=== PATIENT | female | born 1950 | race American Indian/Alaskan Native ===

== ENCOUNTER 2018-01-13 20:58 | Inpatient (IN) ==
--- NOTE | 2018-01-13 21:57 | Emergency Department Note ---
GI Bleed HPI - General Chief complaint: Rectal Bleed Stated complaint: bleed Time Seen by Provider: 01/13/18 21:21 Source: family Mode of arrival: ambulatory Limitations: no limitations - History of Present Illness HPI Narrative: Started developing on blood per rectum, 3-4 small bowel movements with blood clots. Little bit of malaise today, decreased appetite reports slight degree of left lower quadrant abdominal pain. No history of this bleed before. She does take aspirin. No nausea or vomiting, no recent diarrhea, she did start taking Augmentin one week ago for presumed upper respiratory infection. Denies cough denies fever chills, slight upper respiratory symptoms, has been improving recently. MD complaint: blood streaked stool Onset (ago): hour(s) - Related Data Home Medications Medication Instructions Recorded Confirmed Aspirin [Stephanie Chewable Aspirin] 81 mg PO DAILY 03/03/16 03/03/16 Calcium Carbonate [Calcium] 1 tab PO TID 03/03/16 03/03/16 Cinnamon Bark [Cinnamon] 1,000 mg PO DAILY 03/03/16 03/03/16 Diltiazem [Cardizem Cd] 180 mg PO ONCE 03/03/16 03/03/16 Ergocalciferol (Vitamin D2) 50,000 unit PO WEEKLY 03/03/16 03/03/16 [Vitamin D2] Gabapentin [Gralise] 300 mg PO HS 03/03/16 03/03/16 Herbal Complex No.174 900 mg PO HS 03/03/16 03/03/16 [Echinacea-Goldenseal] Insulin Aspart [Novolog] 30 units SC BIDAC 03/03/16 03/03/16 Insulin Detemir [Levemir] 55 unit SQ HS 03/03/16 03/03/16 Losartan [Cozaar] 50 mg PO DAILY 03/03/16 03/03/16 Multivit-Min/FA/Lycopen/Lutein 1 tab PO DAILY 03/03/16 03/03/16 [Centrum Silver Tablet] Ranitidine HCl [Zantac] 150 mg PO DAILY 03/03/16 03/03/16 metFORMIN [Glucophage] 500 mg PO BIDCC 03/03/16 03/03/16 Allergies Allergy/AdvReac Type Severity Reaction Status Date / Time Sulfa (Sulfonamide AdvReac Intermediate Swelling Verified 01/10/17 04:24 Antibiotics) [SULFA (SULFONAMIDE ANTIBIOTICS)] Review of Systems All systems ED: reviewed and negative except as stated. Gastrointestinal: Reports: abdominal pain, diarrhea. Denies: nausea, vomiting Genitourinary: Denies: dysuria, urgency Integumentary: Denies: rash Neurological: Denies: headache, weakness, dizziness Hematological/Lymphatic: Denies: easy bruising Past Medical History - Past Medical History Source: nursing notes reviewed Medical history: Reports: DM, hypertension Surgical history ED: Reports: appendectomy, cholecystectomy, orthopedic, other Family history: Reports: diabetes, hypertension - Social History smoking status: Never smoker Alcohol use: Reports: None Drug use: Reports: none Physical Exam Limitations: no limitations General appearance: alert Head: atraumatic, normocephalic Eye: Present: normal appearance, PERRL, EOMI. Absent: conjunctival injection ENT: normal exam, normal oropharynx, mucous membranes moist, TM's normal bilaterally Neck: Present: normal inspection, full ROM, trachea midline Chest: Present: normal inspection, symmetric chest wall rise Respiratory: Present: normal lung sounds bilaterally. Absent: respiratory distress, rales/crackles Cardiovascular: Present: regular rate, normal rhythm. Absent: tachycardia Abdominal: Present: soft, tenderness, normal bowel sounds. Absent: guarding, rebound Abdominal tenderness: Present: LLQ, mild Rectal: Present: normal inspection, normal rectal tone, heme (+) stool, bloody stool Extremities: Present: normal inspection, full ROM. Absent: tenderness Back: Present: normal inspection, full ROM. Absent: CVA tenderness (R), CVA tenderness (L) Neurological: Present: alert, oriented X3, CN II-XII intact Psychiatric: Present: normal affect Skin: Present: warm, dry, intact, normal color. Absent: rash, cyanosis Course Vital Signs Temperature 98 F 01/13/18 20:59 Pulse Rate 78 01/13/18 20:59 Respiratory Rate 17 01/13/18 20:59 Blood Pressure 165/68 01/13/18 20:59 Pulse Oximetry (%) 97 01/13/18 20:59 Temperature 98 F 01/13/18 20:59 Pulse Rate 93 H 01/13/18 21:54 Respiratory Rate 17 01/13/18 20:59 Blood Pressure 147/60 01/13/18 21:54 Pulse Oximetry (%) 99 01/13/18 21:54 GI Bleed - [facility] Narrative Medical decision making narrative: Patient observed here in the ED, she was not orthostatic she was not syncopal. Normal heart rhythm, normal heart rate. Hemoglobin was 11.5. Hematocrit minimally decreased in. She was typed and screened. At this point I recommended hospitalization to observe her hemoglobin and hematocrit, IV fluids given at a slow rate. She was hemodynamically stable. Discussed hospital admission with Dr. Rios as well as Dr. Montague. - Lab Data Result diagrams: 01/13/18 21:38 01/13/18 21:38 Lab Results 01/13/18 01/13/18 Range/Units 21:38 21:38 WBC 11.6 H (4.5-11.0) K/mcL RBC 4.69 (4.00-5.20) M/mcL Hgb 11.6 L (12.0-15.0) g/dL Hct 35.9 L (36.0-48.0) % MCV 76.5 L (80.0-100.0) fL MCH 24.7 L (26.0-34.0) pg MCHC 32.2 (31.0-36.0) g/dL RDW 13.5 (11.5-14.5) % Plt Count 254 (140-440) K/mcL MPV 7.8 (7.4-10.4) fL Gran % 67.0 (38.0-78.0) % Lymph % (Auto) 25.3 (15.5-49.0) % [place] % (Auto) 4.7 (1.0-12.0) % Eos % (Auto) 2.6 (0.0-7.0) % Baso % (Auto) 0.4 (0.0-2.0) % Gran # 7.9 (1.8-8.0) K/mcL Lymph # (Auto) 2.9 (1.5-4.8) K/mcL [place] # (Auto) 0.5 (0.1-0.9) K/mcL Eos # (Auto) 0.3 (0.0-0.7) K/mcL Baso # (Auto) 0 (0.0-0.3) K/mcL Sodium 138 (133-145) mmol/L Potassium 4.5 (3.3-5.1) mmol/L Chloride 101 (96-108) mmol/L Carbon Dioxide 23 (22-30) mmol/L Anion Gap 14.0 (8-16) BUN 13 (8-23) mg/dl Creatinine 0.8 (0.6-1.1) mg/dl GFR Calculation 75 Glucose 90 (70-105) mg/dL Calcium 9.3 (8.6-10.4) mg/dl Total Bilirubin 0.3 (0.0-1.0) mg/dL AST 25 (0-37) U/l ALT 18 (0-40) U/l Alkaline Phosphatase 97 (39-117) U/L Total Protein 7.0 (5.9-8.4) gm/dL Albumin 4.2 (3.2-5.2) gm/dL Globulin 2.8 (2.2-3.7) gm/dL Albumin/Globulin Ratio 1.5 (1.0-2.3) Disposition 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
[2018-01-13] MEDS ORDERED: 0.9 % SODIUM CHLORIDE 250 ML IV SCH (22:15)
[2018-01-13 22:34] LABS: Basophils # (Auto) 0 K/mcL (0.0-0.3); Basophils % (Auto) 0.4 % (0.0-2.0); Eosinophils # (Auto) 0.3 K/mcL (0.0-0.7); Eosinophils % (Auto) 2.6 % (0.0-7.0); Lymphocytes # (Auto) 2.9 K/mcL (1.5-4.8); Lymphocytes % (Auto) 25.3 % (15.5-49.0); Mean Cell Volume 76.5 fL (80.0-100.0); Mean Corpuscular HGB Conc 32.2 g/dL (31.0-36.0); Mean Corpuscular Hemoglobin 24.7 pg (26.0-34.0); Monocytes # (Auto) 0.5 K/mcL (0.1-0.9); Monocytes % (Auto) 4.7 % (1.0-12.0); Platelet Count 254 K/mcL (140-440); RBC 4.69 M/mcL (4.00-5.20); Red Cell Distribution Width 13.5 % (11.5-14.5)
[2018-01-13 22:48] LABS: ALT/SGPT 18 U/l (0-40); Albumin 4.2 gm/dL (3.2-5.2); Albumin/Globulin Ratio 1.5 (1.0-2.3); Alkaline Phosphatase 97 U/L (39-117); Blood Urea Nitrogen 13 mg/dl (8-23)
--- NOTE | 2018-01-13 23:51 | Internal Med History&Physical ---
Medical - H&P: HPI Patient information: Note initiated : 01/13/18 at 11:46 pm Service Date, if different from initiated Date: [] Patient: Corrie Doe a 67 y/o F admitted on for bleed. Chief Complaint: [] History of present illness: Ms. Doe is a 67 year old F with history of diabetes hypertension presents to the emergency room today for evaluation of lower GI bleed. The patient has been having cough that has been going on for the last 1 week, cough is associated with some shortness of breath. She was seen by a primary care provider or an urgent care center but she was prescribed Augmentin and albuterol inhaler. The patient notes that her symptoms improved after taking Augmentin. She still has some tablets left. This morning around 9:00 the patient noticed an urge to go to the bathroom, when she wiped herself she noticed that there was blood in the tissues and some clots. The patient has gone to the bathroom every hour since with multiple blood clots. She has had to use pads and notes that approximately 10-12 pads have been needed since this morning. This afternoon the patient had some sharp abdominal pain in the left lower quadrant that radiated to the umbilicus which resolved spontaneously. The patient also was dizzy this evening. The patient eventually decided to come to the emergency room for further evaluation. On presentation to the emergency room, patient was afebrile temperature 98, heart rate 78, blood pressure 165/68. Respirations 16-20, 98% oxygen saturation on room air. Labs showed mild leukocytosis 11.6, no left shift. Hemoglobin 11.6 MCV 76.5 platelets 254. INR 1.0, chemistry shows sodium of 138 potassium 4.5 bicarbonate 23 BUN 13 creatinine 0.8 glucose 90. Given patient's recurrent GI bleed patient is being admitted to the hospital for further management. We do not have a GI specialist available cushion padder but our surgeon Dr. Montague has agreed for consult and colonoscopy as needed. All systems: reviewed and no additional remarkable complaints except as stated ( As per HPI rest negative) Medical - H&P: PMH Medical history: Hypertension diabetes diabetic neuropathy Obesity Surgical history: Gallbladder surgery Appendix surgery Foot surgeries Family history: reviewed and not pertinent Pertinent family history: Maternal uncle with history of colon cancer Mother with history of ovarian cancer Social history: Lives with family, sons No smoking history No alcohol use reported No marijuana or recreational substance use reported Medical - H&P: Meds Home Medications Medication Instructions Recorded Confirmed Type Aspirin [Stephanie Chewable Aspirin] 81 mg PO DAILY 03/03/16 01/13/18 History Calcium Carbonate [Calcium] 1 tab PO TID 03/03/16 01/13/18 History Cinnamon Bark [Cinnamon] 1,000 mg PO DAILY 03/03/16 01/13/18 History Diltiazem [Cardizem Cd] 180 mg PO ONCE 03/03/16 01/13/18 History Ergocalciferol (Vitamin D2) 50,000 unit PO WEEKLY 03/03/16 01/13/18 History [Vitamin D2] Gabapentin [Gralise] 400 mg PO HS 03/03/16 03/03/16 History Herbal Complex No.174 900 mg PO HS 03/03/16 01/13/18 History [Echinacea-Goldenseal] Insulin Aspart [Novolog] 30 units SC BIDAC PRN 03/03/16 03/03/16 History Insulin Detemir [Levemir] 55 unit SQ HS 03/03/16 01/13/18 History Losartan [Cozaar] 50 mg PO DAILY 03/03/16 01/13/18 History Multivit-Min/FA/Lycopen/Lutein 1 tab PO DAILY 03/03/16 01/13/18 History [Centrum Silver Tablet] Ranitidine HCl [Zantac] 150 mg PO BID 03/03/16 01/13/18 History metFORMIN [Glucophage] 500 mg PO BIDCC 03/03/16 01/13/18 History Amoxicillin/Potassium Clav 875 mg PO BID 01/13/18 01/13/18 History [Augmentin] Allergies Allergy/AdvReac Type Severity Reaction Status Date / Time Sulfa (Sulfonamide AdvReac Intermediate Swelling Verified 03/03/16 04:24 Antibiotics) [SULFA (SULFONAMIDE ANTIBIOTICS)] Medical - H&P: Exam - Constitutional Vitals: Temp Pulse Resp BP Pulse Ox 98 F 88 18 121/86 98 01/13/18 20:59 01/13/18 23:11 01/13/18 23:11 01/13/18 23:11 01/13/18 23:11 Exam: GENERAL: The patient is a well-developed, well-nourished in no apparent distress. Is alert and oriented x3. VITAL SIGNS: Reviewed and as noted elsewhere. HEENT: Head is normocephalic and atraumatic. Extraocular muscles are intact. Pupils are equal, round, and reactive to light. Nares appeared normal. Mouth appears any without lesions. Mucous membranes are moist. NECK: Normal to inspection, Supple, No lymphadenopathy or thyromegaly. LUNGS: Air entry equal on both sides, no wheezing, crackles or rhonchi noted. No accessory muscles of respiration HEART: Regular rate and rhythm normal, S1 and S2 heard, no Gallop, S3 or Rub Noted, No Gross murmur heard. ABDOMEN: Soft, nontender, and nondistended. Positive bowel sounds. No hepatosplenomegaly was noted. EXTREMITIES: No cyanosis, clubbing, rash, lesions or edema. NEUROLOGIC: Cranial nerves II through XII are grossly intact. Motor and Sensory System Grossly Intact PSYCHIATRIC: Normal affect, Normal Mood. Appropriate Behavior. SKIN: No ulceration or wounds noted, No jaundice, No rash noted. Medical - H&P: Reslt - Labs CBC & Chem 7: 01/13/18 21:38 01/13/18 21:38 Labs: Short CBC 01/13/18 Range/Units 21:38 WBC 11.6 H (4.5-11.0) K/mcL Hgb 11.6 L (12.0-15.0) g/dL Hct 35.9 L (36.0-48.0) % Plt Count 254 (140-440) K/mcL BMP 01/13/18 21:38 Sodium 138 Potassium 4.5 Chloride 101 Carbon Dioxide 23 BUN 13 Creatinine 0.8 Glucose 90 Calcium 9.3 Liver Function 01/13/18 Range/Units 21:38 Total Bilirubin 0.3 (0.0-1.0) mg/dL AST 25 (0-37) U/l ALT 18 (0-40) U/l Alkaline Phosphatase 97 (39-117) U/L Albumin 4.2 (3.2-5.2) gm/dL Medical - H&P: A/P - Narrative A/P Narrative: A/P Lower GI bleed -Likely diverticular bleed -Last colonoscopy last year, by Dr Willoughby, no polyps as per pt, but had same in the past, -Try to obtain report in AM -Dr Montague consulted from ER -monitor on tele -Hold ASA Acute blood loss Anemia -Hb 11.6, baseline around 14 -low MCV -transfuse if needed DM -SSi insulin for glucose control. HTN -BP high, -Hold bp meds for now, monitor, Neuropathy -Resume home meds DVT -SCD Diet -NPO except Icechips and meds Code Status -Full code
[2018-01-14] MEDS ORDERED: ONDANSETRON 4 MG/2 ML VIAL IV PRN (00:17)
[2018-01-14] MEDS ORDERED: ACETAMINOPHEN 325 MG TABLET PO PRN (00:17)
[2018-01-14] MEDS ORDERED: NALOXONE HCL 0.4 MG/ML VIAL IV PRN (00:17)
[2018-01-14] MEDS ORDERED: DEXTROSE 50% 50 ML VIAL IV PRN (00:17)
[2018-01-14] MEDS ORDERED: GABAPENTIN 100 MG CAPSULE PO ONE (00:27)
[2018-01-14] MEDS ORDERED: GABAPENTIN 300 MG CAPSULE ONE (00:27)
[2018-01-14] MEDS: 0.9 % SODIUM CHLORIDE 1,000 ML IV SCH ×2 (00:30→12:21)
[2018-01-14] MEDS: INSULIN LISPRO 1 UNIT/0.01 ML UNIT SQ SCH ×4 (00:31→17:58)
[2018-01-14] MEDS: 0.9 % SODIUM CHLORIDE 10 ML SYRINGE IV SCH ×3 (05:22→22:06)
[2018-01-14 06:33] LABS: Basophils # (Auto) 0.1 K/mcL (0.0-0.3); Basophils % (Auto) 0.6 % (0.0-2.0); Eosinophils # (Auto) 0.3 K/mcL (0.0-0.7); Eosinophils % (Auto) 2.2 % (0.0-7.0); Granulocytes % (Auto) 68.2 % (38.0-78.0); Lymphocytes # (Auto) 2.7 K/mcL (1.5-4.8); Mean Cell Volume 78.2 fL (80.0-100.0); Mean Corpuscular HGB Conc 34.1 g/dL (31.0-36.0); Mean Corpuscular Hemoglobin 26.6 pg (26.0-34.0); Monocytes # (Auto) 0.6 K/mcL (0.1-0.9); Platelet Count 275 K/mcL (140-440); Red Cell Distribution Width 14.5 % (11.5-14.5)
[2018-01-14 06:47] LABS: ALT/SGPT 17 U/l (0-40); Albumin 3.8 gm/dL (3.2-5.2); Albumin/Globulin Ratio 1.5 (1.0-2.3); Alkaline Phosphatase 83 U/L (39-117); Bilirubin,Direct < 0.2 mg/dL (0.0-0.3); Blood Urea Nitrogen 9 mg/dl (8-23); Gamma Glutamyl Transpeptidase 19 U/L (5-36); Uric Acid 6.2 mg/dL (2.5-8.0)
[2018-01-14] MEDS: CALCIUM (OYSTER SHELL) 500 MG TABLET PO SCH ×3 (09:22→20:14)
--- NOTE | 2018-01-14 13:58 | Internal Med Progress Note ---
Medical - PN: Subj Patient information: Note initiated : 01/14/18 at 1:55 pm Service Date, if different from initiated Date: [] Patient: Corrie Doe a 67 y/o F admitted on 01/14/18 for bleed. Chief Complaint: [] Interval history: Ms. Doe is a 67 year old F with history of diabetes hypertension presents to the emergency room today for evaluation of lower GI bleed. The patient has been having cough that has been going on for the last 1 week, cough is associated with some shortness of breath. She was seen by a primary care provider or an urgent care center but she was prescribed Augmentin and albuterol inhaler. The patient notes that her symptoms improved after taking Augmentin. She still has some tablets left. This morning around 9:00 the patient noticed an urge to go to the bathroom, when she wiped herself she noticed that there was blood in the tissues and some clots. The patient has gone to the bathroom every hour since with multiple blood clots. She has had to use pads and notes that approximately 10-12 pads have been needed since this morning. This afternoon the patient had some sharp abdominal pain in the left lower quadrant that radiated to the umbilicus which resolved spontaneously. The patient also was dizzy this evening. The patient eventually decided to come to the emergency room for further evaluation. On presentation to the emergency room, patient was afebrile temperature 98, heart rate 78, blood pressure 165/68. Respirations 16-20, 98% oxygen saturation on room air. Labs showed mild leukocytosis 11.6, no left shift. Hemoglobin 11.6 MCV 76.5 platelets 254. INR 1.0, chemistry shows sodium of 138 potassium 4.5 bicarbonate 23 BUN 13 creatinine 0.8 glucose 90. Given patient's recurrent GI bleed patient is being admitted to the hospital for further management. 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 Montague has agreed for consult and colonoscopy as needed. 01/14 Pt seen examined, the patient does not have any new complaints or concerns till has blood with clots passing via rectum hb is stable Awaiting surgery eval repeat hb/hct this pm, Pertinent ROS: Denies headache, dizziness Denies chest pain, palpitations Denies cough or shortness of breath Denies abdominal pain, nausea or vomiting. - Constitutional Vitals: Vital Signs Temp Pulse Resp BP Pulse Ox 98.1 F 91 H 16 136/73 93 01/14/18 12:27 01/14/18 08:08 01/14/18 11:30 01/14/18 11:30 01/14/18 11:30 Period Temp Pulse Resp BP Sys/Krishna Pulse Ox Last 24 Hr 97.3 F-99.2 F 61-93 16-20 106-167/45-86 91-99 Intake and Output 01/13/18 01/14/18 01/14/18 21:59 05:59 13:59 Intake Total 20 / 20 1000 / 1000 Output Total 500 / 500 575 / 575 Balance -480 / -480 425 / 425 Weight 190 lb 186 lb 3 oz Intake & Output: Intake & Output 01/13/18 01/14/18 01/14/18 21:59 05:59 13:59 Intake Total 20 / 20 1000 / 1000 Output Total 500 / 500 575 / 575 Balance -480 / -480 425 / 425 Weight 190 lb 186 lb 3 oz Intake: IV 1000 / 1000 Sodium Chloride 0.9% 1,000 ml @ 1000 / 1000 100 mls/hr IV .Q10H [facility] Rx#: [id number] Oral Output: Void Amount 500 / 500 Urine/Stool Mix 575 / 575 Other: Urine Appearance Clear Urine Color Bright Yellow Urine Odor Normal Stool Size Small Stool Color Bright Red Blood Bright Red Blood Stool Consistency Normal for Patient Liquid # Voids 1 # Bowel Movements 1 1 # Emeses 0 Exam: Constitutional; Afebrile, cooperative, alert, not in distress. Respiratory system: Air Entry equal on both sides, No crackles or wheezing, no rhonchi. CVS- Rate rhythm regular, S1,S2 heard, no gallop, no rub. 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 Medical - PN: Obj Da - Labs CBC & Chem 7: 01/14/18 04:27 01/14/18 04:27 Labs: Abnormal Lab Results 01/14/18 01/14/18 01/13/18 04:27 04:27 21:38 WBC 11.4 H 11.6 H Hgb 11.4 L 11.6 L Hct 33.6 L 35.9 L MCV 78.2 L 76.5 L MCH 24.7 L Glucose 116 H Triglycerides 193 H Meds: Medications Acetaminophen (Tylenol) 650 mg PO Q6HP PRN PRN Reason: PAIN/FEVER > 101 Calcium Carbonate/Glycine (Oscal) 500 mg PO TID [facility] Last Admin: 01/14/18 09:22 Dose: Not Given Dextrose (Dextrose 50%) 0 ml IV UD PRN PRN Reason: Hypoglycemia Diagnostic Test (Pha) (Accu-Chek) 1 each FS Q6 [facility] Last Admin: 01/14/18 12:22 Dose: 1 each Gabapentin (Neurontin) 400 mg PO HS JC Sodium Chloride (Sodium Chloride 0.9%) 1,000 mls @ 100 mls/hr IV .Q10H [facility] Stop: 01/14/18 20:16 Last Admin: 01/14/18 12:21 Dose: 100 mls/hr Insulin Human Lispro (Humalog) 0 unit SQ Q6 [facility]; Protocol Last Admin: 01/14/18 12:22 Dose: Not Given Morphine Sulfate (Morphine) 2 mg IV Q4HP PRN PRN Reason: pain not responding to apap Naloxone HCl (Narcan) 0.1 mg IV Q2MIN PRN PRN Reason: Opiate Reversal Ondansetron HCl (Zofran) 4 mg IV Q4HP PRN PRN Reason: Nausea And Vomiting Pneumococcal Polyvalent Vaccine (Pneumovax 23) 0.5 ml IM .ONCE ONE Stop: 01/15/18 10:01 Sodium Chloride (Saline Flush) 10 ml IV Q8 [facility] Last Admin: 01/14/18 13:52 Dose: Not Given Medical - PN: A/P - Time Spent With Patient Total time spent is greater than 50% in coordination of care (as documented) at patient's floor/unit and/or counseling patient: - Narrative A/P Narrative: A/P Lower GI bleed -Likely diverticular bleed -Last colonoscopy last year, by Dr Willoughby, no polyps as per pt, but had same in the past, -Try to obtain report -Dr Montague consulted from ER -monitor on tele -Hold ASA Acute blood loss Anemia -Hb 11.6, baseline around 14, Hb is stable, monitor for now -low MCV -transfuse if needed DM -SSi insulin for glucose control. HTN -BP high, -Hold bp meds for now, monitor, Neuropathy -Resume home meds DVT -SCD Diet -NPO except Icechips and meds Code Status -Full code Medical - PN: Qual - Stroke Symptom Onset Unknown: No - VTE Deep Vein Thrombosis/Pulmonary Embolism Present on Admission: No
[2018-01-14] MEDS ORDERED: ENALAPRILAT 1.25 MG/ML VIAL IV PRN (14:17)
--- NOTE | 2018-01-14 14:18 | Internal Med Progress Note ---
Medical - PN: Subj Patient information: Note initiated : 01/14/18 at 2:13 pm Service Date, if different from initiated Date: [] Patient: Corrie Doe a 67 y/o F admitted on 01/14/18 for bleed. Chief Complaint: [] Interval history: Ms. Doe is a 67 year old F with history of diabetes hypertension presents to the emergency room today for evaluation of lower GI bleed. The patient has been having cough that has been going on for the last 1 week, cough is associated with some shortness of breath. She was seen by a primary care provider or an urgent care center but she was prescribed Augmentin and albuterol inhaler. The patient notes that her symptoms improved after taking Augmentin. She still has some tablets left. This morning around 9:00 the patient noticed an urge to go to the bathroom, when she wiped herself she noticed that there was blood in the tissues and some clots. The patient has gone to the bathroom every hour since with multiple blood clots. She has had to use pads and notes that approximately 10-12 pads have been needed since this morning. This afternoon the patient had some sharp abdominal pain in the left lower quadrant that radiated to the umbilicus which resolved spontaneously. The patient also was dizzy this evening. The patient eventually decided to come to the emergency room for further evaluation. On presentation to the emergency room, patient was afebrile temperature 98, heart rate 78, blood pressure 165/68. Respirations 16-20, 98% oxygen saturation on room air. Labs showed mild leukocytosis 11.6, no left shift. Hemoglobin 11.6 MCV 76.5 platelets 254. INR 1.0, chemistry shows sodium of 138 potassium 4.5 bicarbonate 23 BUN 13 creatinine 0.8 glucose 90. Given patient's recurrent GI bleed patient is being admitted to the hospital for further management. We do not have a GI specialist available personal secretary but our surgeon Dr. Montague has agreed for consult and colonoscopy as needed. 01/14 Pt seen examined, the patient does not have any new complaints or concerns till has blood with clots passing via rectum hb is stable Awaiting surgery eval repeat hb/hct this pm, 01/15 - Constitutional Vitals: Vital Signs Temp Pulse Resp BP Pulse Ox 98.1 F 91 H 16 136/73 93 01/14/18 12:27 01/14/18 08:08 01/14/18 11:30 01/14/18 11:30 01/14/18 11:30 Period Temp Pulse Resp BP Sys/Krishna Pulse Ox Last 24 Hr 97.3 F-99.2 F 61-93 16-20 106-167/45-86 91-99 Intake and Output 01/14/18 01/14/18 01/14/18 05:59 13:59 21:59 Intake Total 20 1000 / 1000 Output Total 500 / 500 575 / 575 150 / 150 Balance -480 / -480 425 / 425 -150 / -150 Weight 84.453 kg Intake & Output: Intake & Output 01/14/18 01/14/18 01/14/18 05:59 13:59 21:59 Intake Total 20 / 20 1000 / 1000 Output Total 500 / 500 575 / 575 150 / 150 Balance -480 / -480 425 / 425 -150 / -150 Weight 84.453 kg Intake: IV 1000 / 1000 Sodium Chloride 0.9% 1,000 ml @ 1000 / 1000 100 mls/hr IV .Q10H [facility] Rx#: [id number] Oral Output: Urine Catheter Amount 150 / 150 Void Amount 500 / 500 Urine/Stool Mix 575 / 575 Other: Urine Appearance Clear Urine Color Bright Yellow Pale Urine Odor Normal Stool Size Small Small Stool Color Bright Red Blood Bright Red Blood Bright Red Blood Dark Red Blood Stool Consistency Normal for Patient Liquid Liquid Loose # Voids 1 # Bowel Movements 1 1 # Emeses 0 Exam: General: Alert, Awake, No acute Distress HEENT: EOMI, neck supple CV: RRR, No murmurs, Pulm: Clear b/l, no wheezing/rhonchi/rales Abd: soft, nontender, +BS x4 Ext: no clubbing/cyanosis/edema Neuro: Alert, no focal deficits, moves all extremities Skin: warm/dry Medical - PN: Obj Da - Labs CBC & Chem 7: 01/14/18 04:27 01/14/18 04:27 Labs: Abnormal Lab Results 01/14/18 01/14/18 01/13/18 04:27 04:27 21:38 WBC 11.4 H 11.6 H Hgb 11.4 L 11.6 L Hct 33.6 L 35.9 L MCV 78.2 L 76.5 L MCH 24.7 L Glucose 116 H Triglycerides 193 H Meds: Medications Acetaminophen (Tylenol) 650 mg PO Q6HP PRN PRN Reason: PAIN/FEVER > 101 Calcium Carbonate/Glycine (Oscal) 500 mg PO TID [facility] Last Admin: 01/14/18 09:22 Dose: Not Given Dextrose (Dextrose 50%) 0 ml IV UD PRN PRN Reason: Hypoglycemia Diagnostic Test (Pha) (Accu-Chek) 1 each FS Q6 [facility] Last Admin: 01/14/18 12:22 Dose: 1 each Gabapentin (Neurontin) 400 mg PO HS JC Sodium Chloride (Sodium Chloride 0.9%) 1,000 mls @ 100 mls/hr IV .Q10H [facility] Stop: 01/14/18 20:16 Last Admin: 01/14/18 12:21 Dose: 100 mls/hr Insulin Human Lispro (Humalog) 0 unit SQ Q6 [facility]; Protocol Last Admin: 01/14/18 12:22 Dose: Not Given Morphine Sulfate (Morphine) 2 mg IV Q4HP PRN PRN Reason: pain not responding to apap Naloxone HCl (Narcan) 0.1 mg IV Q2MIN PRN PRN Reason: Opiate Reversal Ondansetron HCl (Zofran) 4 mg IV Q4HP PRN PRN Reason: Nausea And Vomiting Pneumococcal Polyvalent Vaccine (Pneumovax 23) 0.5 ml IM .ONCE ONE Stop: 01/15/18 10:01 Sodium Chloride (Saline Flush) 10 ml IV Q8 [facility] Last Admin: 01/14/18 13:52 Dose: Not Given Medical - PN: A/P - Time Spent With Patient Total time spent is greater than 50% in coordination of care (as documented) at patient's floor/unit and/or counseling patient: - Narrative A/P Narrative: A: *Lower GI bleed: Likely diverticular bleed -Last colonoscopy last year, by Dr Willoughby, no polyps as per pt, but had same in the past, *Acute blood loss Anemia, on chronic: 2/2 above *DM: *HTN: *Neuropathy: * P: -Dr Montague consulted from ER, pending colonoscopy -monitor on tele -Hold ASA -monitor H&H, prn transfuse -BP meds held while NPO, IV prn -SSI - -ppx: SCD Medical - PN: Qual - Stroke Symptom Onset Unknown: No - VTE Deep Vein Thrombosis/Pulmonary Embolism Present on Admission: No
--- NOTE | 2018-01-14 15:34 | General Surgery Consult Note ---
History of Present Illness Patient information: Note initiated : 01/14/18 at 3:32 pm Service Date, if different from initiated Date: [] Patient: Corrie Doe 67 y/o F admitted on 01/14/18 for bleed. Chief Complaint: [] Reason for consult: other (rrectal bleeding) History of present illness: 67-year-old female admitted for evaluation and treatment of rectal bleeding. The patient states that on the morning of to December she developed crampy abdominal pain followed by multiple bloody stools.. She states that she had bloody bowel movements hourly for the next 45 hours.. She finally was seen in the emergency room at 8 PM on the day of admission. She had blood per rectum with a hemoglobin of 11.6. Prior hemoglobin was 14. The patient states that she had colonoscopy by Dr. Shukla last year which was normal. She had prior colonoscopy 5 years prior and that had multiple polyps. Today she has had 4 bowel movements with some clots. She is still having mild left-sided abdominal pain. Patient is evaluated and is counseled for colonoscopy after undergoing bowel prep. Review of Systems - Constitutional fatigue, malaise, no weight loss - EENT Nose, mouth and throat: no abnormal hearing, no hoarseness, no neck pain, no sore throat, no throat swelling - Breasts no change in shape, no pain, no nipple discharge, no skin changes - Cardiovascular no chest pain, no claudication, no dyspnea on exertion, no orthopnea, no palpatations, no rapid heart rate, no syncope - Respiratory no cough, no dyspnea on exertion, no wheezing, no excessive phlegm production, no pain with cough - Gastrointestinal abdominal pain, change in stool character, cramping, hematochezia, nausea, no vomiting - Genitourinary Genitourinary: no difficulty voiding, no dysuria, no nocturia - Musculoskeletal arthralgias, numbness, stiffness - Integumentary no changing lesions, no non-healing lesions, no pruritus, no rash - Neurological no abnormal hearing, no abnormal speech, no confusion, no convulsions, no dizziness, no numbness, no restless legs, no syncope, no vertigo - Psychiatric no panic attacks - Endocrine polydipsia, no fatigue, no palpitations - Hematologic/Lymphatic no easy bleeding, no easy bruising, no lymphadenopathy - Allergic/Immunologic no tongue swelling, no throat swelling, no uticaria, no wheezing, no lip swelling Past History Past medical history: Diabetes mellitus Hypertension History of C. difficile colitis treated 10 days Past surgical history: Cholecystectomy Appendectomy Open reduction and fixation right ankle fracture Right foot surgery Past family history: Mother age 76 due to ovarian cancer Father age 40 due to gunshot wound 1 sibling with coronary artery disease 3 siblings with diabetes mellitus Past social history: Never smoker No alcohol use No drug use Medications and Allergies Home Medications Medication Instructions Recorded Confirmed Type Aspirin [Stephanie Chewable Aspirin] 81 mg PO DAILY 03/03/16 01/14/18 History Calcium Carbonate [Calcium] 1 tab PO TID 03/03/16 01/14/18 History Cinnamon Bark [Cinnamon] 1,000 mg PO DAILY 03/03/16 01/14/18 History Diltiazem [Cardizem Cd] 180 mg PO QAM 03/03/16 01/14/18 History Ergocalciferol (Vitamin D2) 50,000 unit PO WEEKLY 03/03/16 01/14/18 History [Vitamin D2] Gabapentin [Gralise] 400 mg PO HS 03/03/16 01/14/18 History Herbal Complex No.174 900 mg PO HS 03/03/16 01/14/18 History [Echinacea-Goldenseal] Insulin Aspart [Novolog] 30 units SC BIDAC PRN 03/03/16 01/14/18 History Insulin Detemir [Levemir] 55 unit SQ HS 03/03/16 01/14/18 History Losartan [Cozaar] 50 mg PO DAILY 03/03/16 01/14/18 History Multivit-Min/FA/Lycopen/Lutein 1 tab PO DAILY 03/03/16 01/14/18 History [Centrum Silver Tablet] Ranitidine HCl [Zantac] 150 mg PO BID 03/03/16 01/14/18 History metFORMIN [Glucophage] 500 mg PO BIDCC 03/03/16 01/14/18 History Amoxicillin/Potassium Clav 875 mg PO BID 01/13/18 01/14/18 History [Augmentin] Allergies Allergy/AdvReac Type Severity Reaction Status Date / Time Sulfa (Sulfonamide AdvReac Intermediate Swelling Verified 01/14/18 00:23 Antibiotics) [SULFA (SULFONAMIDE ANTIBIOTICS)] Exam Temp Pulse Resp BP Pulse Ox 98.1 F 91 H 16 136/73 93 01/14/18 12:27 01/14/18 08:08 01/14/18 11:30 01/14/18 11:30 01/14/18 11:30 - General physical appearance well developed, well nourished, no distress. negative: no pain - Eyes PERRL, normal ocular movement. negative: icteric - ENT normal pinna, normal nares, normal mucosa, no hearing loss, no congestion - Head Head exam IM: Present: atraumatic, normal inspection, normocephalic - Neck no masses, no bruits, trachea midline, no lymphadenopathy, no venous distension - Cardiovascular Cardiovascular exam IM: Present: normal rate and rhythm, RRR, +S1, +S2. Absent : JVD, tachycardia - Respiratory normal expansion, normal respiratory effort, clear to auscultation - Abdomen Abdomen: Present: soft, tender (mmild left lower quadrant tenderness with guarding; good active bowel sounds;;;;;;;;;;;;;;;;;;;;;;;;;;;;;;;;;;;;;;;;;;;;; ; no palpable mass), bowel sounds Hernia: Present: none - Genitourinary Present: normal external genitalia - Integumentary Present: no rash, no growths, no abnormal pigmentation - Neurologic Present: normal coordination, normal sensation - Musculoskeletal Present: normal gait, normal posture - Psychiatric Present: oriented to time, oriented to person, oriented to place, speech is normal, memory intact Results - Labs 01/14/18 15:00 01/14/18 04:27 Abnormal lab results 01/13/18 01/14/18 01/14/18 Range/Units 21:38 04:27 04:27 WBC 11.6 H 11.4 H (4.5-11.0) K/mcL Hgb 11.6 L 11.4 L (12.0-15.0) g/dL Hct 35.9 L 33.6 L (36.0-48.0) % MCV 76.5 L 78.2 L (80.0-100.0) fL MCH 24.7 L (26.0-34.0) pg Glucose 116 H (70-105) mg/dL Triglycerides 193 H (<150) mg/dl 01/14/18 Range/Units 15:00 WBC (4.5-11.0) K/mcL Hgb 11.1 L (12.0-15.0) g/dL Hct 32.0 L (36.0-48.0) % MCV (80.0-100.0) fL MCH (26.0-34.0) pg Glucose (70-105) mg/dL Triglycerides (<150) mg/dl Diabetes panel 01/13/18 01/14/18 Range/Units 21:38 04:27 Sodium 138 139 (133-145) mmol/L Potassium 4.5 4.1 (3.3-5.1) mmol/L Chloride 101 103 (96-108) mmol/L Carbon Dioxide 23 24 (22-30) mmol/L BUN 13 9 (8-23) mg/dl Creatinine 0.8 0.7 (0.6-1.1) mg/dl Glucose 90 116 H (70-105) mg/dL Calcium 9.3 8.9 (8.6-10.4) mg/dl AST 25 22 (0-37) U/l ALT 18 17 (0-40) U/l Alkaline Phosphatase 97 83 (39-117) U/L Total Protein 7.0 6.3 (5.9-8.4) gm/dL Albumin 4.2 3.8 (3.2-5.2) gm/dL Triglycerides 193 H (<150) mg/dl Calcium panel 01/13/18 01/14/18 Range/Units 21:38 04:27 Calcium 9.3 8.9 (8.6-10.4) mg/dl Phosphorus 3.8 (2.7-4.5) mg/dL Albumin 4.2 3.8 (3.2-5.2) gm/dL Pituitary panel 01/13/18 01/14/18 Range/Units 21:38 04:27 Sodium 138 139 (133-145) mmol/L Potassium 4.5 4.1 (3.3-5.1) mmol/L Chloride 101 103 (96-108) mmol/L Carbon Dioxide 23 24 (22-30) mmol/L BUN 13 9 (8-23) mg/dl Creatinine 0.8 0.7 (0.6-1.1) mg/dl Glucose 90 116 H (70-105) mg/dL Calcium 9.3 8.9 (8.6-10.4) mg/dl Adrenal panel 01/13/18 01/14/18 Range/Units 21:38 04:27 Sodium 138 139 (133-145) mmol/L Potassium 4.5 4.1 (3.3-5.1) mmol/L Chloride 101 103 (96-108) mmol/L Carbon Dioxide 23 24 (22-30) mmol/L BUN 13 9 (8-23) mg/dl Creatinine 0.8 0.7 (0.6-1.1) mg/dl Glucose 90 116 H (70-105) mg/dL Calcium 9.3 8.9 (8.6-10.4) mg/dl Total Bilirubin 0.3 0.4 (0.0-1.0) mg/dL AST 25 22 (0-37) U/l ALT 18 17 (0-40) U/l Alkaline Phosphatase 97 83 (39-117) U/L Total Protein 7.0 6.3 (5.9-8.4) gm/dL Albumin 4.2 3.8 (3.2-5.2) gm/dL All other labs normal. Assessment and Plan (1) Lower gastrointestinal bleeding Patient will have bowel prep tonight and is scheduled for colonoscopy in the morning Status: Acute (2) Anemia due to blood loss, acute Hemoglobin and hematocrit will be checked every 4 hours Status: Acute (3) Hypertension Status: Acute (4) Diabetes mellitus Status: Acute Qualifiers: Diabetes mellitus type: type 2 Diabetes mellitus manager intermediate insulin use: with manager intermediate use Diabetes mellitus complication status: without complication Qualified Code(s): E11.9 - Type 2 diabetes mellitus without complications; Z79.4 - manager intermediate (current) use of insulin
[2018-01-14] MEDS ORDERED: MAGNESIUM CITRATE 300 ML ORAL.SOL PO ONE (15:43)
[2018-01-14] MEDS ORDERED: GABAPENTIN 400 MG CAPSULE PO SCH (21:00)
[2018-01-15] MEDS: INSULIN LISPRO 1 UNIT/0.01 ML UNIT SQ SCH ×5 (00:14→23:33)
[2018-01-15] MEDS: 0.9 % SODIUM CHLORIDE 10 ML SYRINGE IV SCH ×3 (05:55→20:08)
[2018-01-15 06:39] LABS: Basophils # (Auto) 0.1 K/mcL (0.0-0.3); Basophils % (Auto) 0.7 % (0.0-2.0); Eosinophils # (Auto) 0.2 K/mcL (0.0-0.7); Eosinophils % (Auto) 2.6 % (0.0-7.0); Lymphocytes # (Auto) 2.3 K/mcL (1.5-4.8); Lymphocytes % (Auto) 27.9 % (15.5-49.0); Mean Cell Volume 78.6 fL (80.0-100.0); Mean Corpuscular HGB Conc 33.6 g/dL (31.0-36.0); Mean Corpuscular Hemoglobin 26.4 pg (26.0-34.0); Monocytes # (Auto) 0.6 K/mcL (0.1-0.9); Monocytes % (Auto) 6.8 % (1.0-12.0); Platelet Count 236 K/mcL (140-440); RBC 3.87 M/mcL (4.00-5.20); Red Cell Distribution Width 14.8 % (11.5-14.5)
[2018-01-15 07:05] LABS: ALT/SGPT 17 U/l (0-40); Albumin 3.6 gm/dL (3.2-5.2); Albumin/Globulin Ratio 1.4 (1.0-2.3); Alkaline Phosphatase 75 U/L (39-117); Bilirubin,Direct < 0.2 mg/dL (0.0-0.3); Blood Urea Nitrogen 8 mg/dl (8-23); Gamma Glutamyl Transpeptidase 18 U/L (5-36); Uric Acid 6.6 mg/dL (2.5-8.0)
--- NOTE | 2018-01-15 07:25 | Internal Med Progress Note ---
Medical - PN: Subj Patient information: Note initiated : 01/15/18 at 7:22 am Service Date, if different from initiated Date: [] Patient: Corrie Doe a 67 y/o F admitted on 01/14/18 for bleed. Chief Complaint: [] Interval history: Ms. Doe is a 67 year old F with history of diabetes hypertension presents to the emergency room today for evaluation of lower GI bleed. The patient has been having cough that has been going on for the last 1 week, cough is associated with some shortness of breath. She was seen by a primary care provider or an urgent care center but she was prescribed Augmentin and albuterol inhaler. The patient notes that her symptoms improved after taking Augmentin. She still has some tablets left. This morning around 9:00 the patient noticed an urge to go to the bathroom, when she wiped herself she noticed that there was blood in the tissues and some clots. The patient has gone to the bathroom every hour since with multiple blood clots. She has had to use pads and notes that approximately 10-12 pads have been needed since this morning. This afternoon the patient had some sharp abdominal pain in the left lower quadrant that radiated to the umbilicus which resolved spontaneously. The patient also was dizzy this evening. The patient eventually decided to come to the emergency room for further evaluation. On presentation to the emergency room, patient was afebrile temperature 98, heart rate 78, blood pressure 165/68. Respirations 16-20, 98% oxygen saturation on room air. Labs showed mild leukocytosis 11.6, no left shift. Hemoglobin 11.6 MCV 76.5 platelets 254. INR 1.0, chemistry shows sodium of 138 potassium 4.5 bicarbonate 23 BUN 13 creatinine 0.8 glucose 90. Given patient's recurrent GI bleed patient is being admitted to the hospital for further management. We do not have a GI specialist available international accounting manager but our surgeon Dr. Montague has agreed for consult and colonoscopy as needed. 01/14 Pt seen examined, the patient does not have any new complaints or concerns till has blood with clots passing via rectum hb is stable Awaiting surgery eval repeat hb/hct this pm, 01/15 colon Prep last night with poor sleep. Occasional cough from recent cold. No other complaints. Had colonoscopy this morning with diverticulosis and old blood in few of the diverticula. Review of Systems: denies headache/fever/chills/nausea/vomiting/chest or abdominal pain/dyspnea. Otherwise see above. - Constitutional Vitals: Vital Signs Temp Pulse Resp BP Pulse Ox 98.1 F 86 20 148/65 94 01/15/18 04:36 01/15/18 04:36 01/15/18 04:36 01/15/18 04:36 01/15/18 04:36 Period Temp Pulse Resp BP Sys/Krishna Pulse Ox Last 24 Hr 97.3 F-98.9 F 86-91 16-20 136-179/65-83 91-99 Intake and Output 01/14/18 01/15/18 01/15/18 21:59 05:59 13:59 Intake Total 240 / 240 1400 / 1400 Output Total 700 / 700 1200 / 1200 Balance -460 / -460 200 / 200 Weight 83.098 kg Intake & Output: Intake & Output 01/14/18 01/15/18 01/15/18 21:59 05:59 13:59 Intake Total 240 / 240 1400 / 1400 Output Total 700 / 700 1200 / 1200 Balance -460 / -460 200 / 200 Weight 83.098 kg Intake: IV 1000 / 1000 Oral 240 / 240 400 / 400 Output: Urine Catheter Amount 150 / 150 Void Amount 75 / 75 Urine/Stool Mix 1100 / 1100 Stool 475 / 475 100 / 100 Other: Urine Appearance Clear Urine Color Bright Yellow Stool Size Large Stool Color Blood Tinged Blood Tinged Stool Consistency Liquid Liquid # Bowel Movements 1 1 Exam: General: Alert, Awake, No acute Distress HEENT: EOMI, neck supple CV: RRR, No murmurs, Pulm: Clear b/l, no wheezing/rhonchi/rales Abd: soft, nontender, +BS x4 Ext: no clubbing/cyanosis/edema Neuro: Alert, no focal deficits, moves all extremities Skin: warm/dry Medical - PN: Obj Da - Labs CBC & Chem 7: 01/15/18 05:04 01/15/18 05:04 Labs: Abnormal Lab Results 01/15/18 01/15/18 01/14/18 05:04 05:04 15:00 WBC RBC 3.87 L Hgb 10.2 L 11.1 L Hct 30.4 L 32.0 L MCV 78.6 L MCH RDW 14.8 H Glucose 115 H Triglycerides 215 H 01/14/18 01/14/18 01/13/18 04:27 04:27 21:38 WBC 11.4 H 11.6 H RBC Hgb 11.4 L 11.6 L Hct 33.6 L 35.9 L MCV 78.2 L 76.5 L MCH 24.7 L RDW Glucose 116 H Triglycerides 193 H Meds: Medications Acetaminophen (Tylenol) 650 mg PO Q6HP PRN PRN Reason: PAIN/FEVER > 101 Calcium Carbonate/Glycine (Oscal) 500 mg PO TID [facility] Last Admin: 01/14/18 20:14 Dose: 500 mg Dextrose (Dextrose 50%) 0 ml IV UD PRN PRN Reason: Hypoglycemia Diagnostic Test (Pha) (Accu-Chek) 1 each FS Q6 [facility] Last Admin: 01/15/18 05:55 Dose: 1 each Enalaprilat (Vasotec) 0 mg IV Q4HP PRN PRN Reason: Hypertension Last Admin: 01/15/18 00:14 Dose: 1.25 mg Gabapentin (Neurontin) 400 mg PO HS [facility] Last Admin: 01/14/18 20:14 Dose: 400 mg Insulin Human Lispro (Humalog) 0 unit SQ Q6 [facility]; Protocol Last Admin: 01/15/18 05:55 Dose: Not Given Morphine Sulfate (Morphine) 2 mg IV Q4HP PRN PRN Reason: pain not responding to apap Naloxone HCl (Narcan) 0.1 mg IV Q2MIN PRN PRN Reason: Opiate Reversal Ondansetron HCl (Zofran) 4 mg IV Q4HP PRN PRN Reason: Nausea And Vomiting Pneumococcal Polyvalent Vaccine (Pneumovax 23) 0.5 ml IM .ONCE ONE Stop: 01/15/18 10:01 Sodium Chloride (Saline Flush) 10 ml IV Q8 [facility] Last Admin: 01/15/18 05:55 Dose: 10 ml Medical - PN: A/P - Time Spent With Patient Total time spent is greater than 50% in coordination of care (as documented) at patient's floor/unit and/or counseling patient: - Narrative A/P Narrative: A: *Lower GI bleed: 2/2 diverticulosis -Last colonoscopy last year, by Dr Willoughby, no polyps as per pt, but had same in the past -Colonoscopy today with diverticulosis and old blood in diverticula *Acute blood loss Anemia, on chronic: 2/2 above *DM w/neuropathy: *HTN: on diltiazem and losartan * P: -Dr Montague following, colonoscopy performed this AM - -Hold home ASA -monitor H&H, prn transfuse -restart diet and home meds -SSI -d/c planning for AM -ppx: SCD Medical - PN: Qual - Stroke Symptom Onset Unknown: No - VTE Deep Vein Thrombosis/Pulmonary Embolism Present on Admission: No
[2018-01-15] MEDS ORDERED: PROPOFOL 200 MG/20 ML VIAL IV ONE (07:50)
[2018-01-15] MEDS ORDERED: LIDOCAINE HCL/PF 100 MG/5 ML SYRINGE IV ONE (07:50)
--- NOTE | 2018-01-15 08:19 | Brief Operative Note ---
Date of procedure: 01/15/18 Pre-op diagnosis: rectal bleeding; blood loss anemia Post-op diagnosis: other (diverticulosis pancolonic) Procedure: colonoscopy to terminal ileum Grafts/Implants: No Anesthesia: MAC Findings: healthy colon except for diverticulosis; old blood in few diverticulae in sigmoid colon; no blood in terminal ileum to proximal sigmoid ; bleeding from diverticulosis but no active bleeding Complications: none Surgeon: Behzad Montague Specimens Removed/Pathology: none sent Condition: stable Disposition: floor
[2018-01-15] MEDS ORDERED: ONDANSETRON 4 MG/2 ML VIAL IV PRN ×2 (08:35→11:13)
[2018-01-15] MEDS ORDERED: NALOXONE HCL 0.4 MG/ML VIAL IV PRN ×2 (08:35→11:13)
[2018-01-15] MEDS ORDERED: ENALAPRILAT 1.25 MG/ML VIAL IV PRN ×2 (08:35→11:13)
[2018-01-15] MEDS ORDERED: ACETAMINOPHEN 325 MG TABLET PO PRN ×2 (08:35→11:13)
[2018-01-15] MEDS ORDERED: DEXTROSE 50% 50 ML VIAL IV PRN ×2 (08:35→11:13)
[2018-01-15] MEDS ORDERED: CALCIUM (OYSTER SHELL) 500 MG TABLET PO SCH (09:00)
[2018-01-15] MEDS ORDERED: PNEUMOCOCCAL 23-VAL P-SAC VAC 0.5 ML VIAL IM ONE (10:00)
--- NOTE | 2018-01-15 10:52 | Discharge Summary ---
Medical - DS: Prov Patient information: Note initiated : 01/15/18 at 10:50 am Service Date, if different from initiated Date: [] Patient: Corrie Doe 67 y/o F admitted on 01/14/18 for bleed. Chief Complaint: [] Date of admission: 01/14/18 00:03 Discharge date: 01/16/18 Primary care physician: Maryuri Ko Consults: 01/13/18 Consult to Physician [CONS] Stat Comment: Consulting Provider: Michele Rios Reason For Exam: Physician to Consult 01/14/18 00:17 Consult to Physician [CONS] Stat Comment: GI bleed Consulting Provider: Behzad Montague Reason For Exam: Physician to Consult Medical - DS: Meds - Discharge Medications Active and Home Medications: Home Medications Aspirin [Stephanie Chewable Aspirin] 81 mg PO DAILY 03/03/16 [History Confirmed Last Taken 01/12/18 08:00] Calcium Carbonate [Calcium] 1 tab PO TID 03/03/16 [History Confirmed 01/14/18 Last Taken 01/12/18 21:00] Cinnamon Bark [Cinnamon] 1,000 mg PO DAILY 03/03/16 [History Confirmed 01/14/18 Last Taken 01/12/18 08:00] Diltiazem [Cardizem Cd] 180 mg PO QAM 03/03/16 [History Confirmed 01/14/18 Last Taken 01/12/18 08:00] Ergocalciferol (Vitamin D2) [Vitamin D2] 50,000 unit PO WEEKLY 03/03/16 [ History Confirmed 01/14/18 Last Taken 01/09/18 08:00] Gabapentin [Gralise] 400 mg PO HS 03/03/16 [History Confirmed 01/14/18 Last Taken 01/12/18 21:00] Herbal Complex No.174 [Echinacea-Goldenseal] 900 mg PO HS 03/03/16 [History Confirmed 01/14/18 Last Taken 01/12/18 21:00] Insulin Aspart [Novolog] 30 units SC BIDAC PRN 03/03/16 [History Confirmed 01/14 Last Taken Unknown] Insulin Detemir [Levemir] 55 unit SQ HS 03/03/16 [History Confirmed 01/14/18 Last Taken 01/12/18 21:00] Losartan [Cozaar] 50 mg PO DAILY 03/03/16 [History Confirmed 01/14/18 Last Taken 01/12/18 08:00] Multivit-Min/FA/Lycopen/Lutein [Centrum Silver Tablet] 1 tab PO DAILY 03/03/16 [ History Confirmed 01/14/18 Last Taken 01/12/18 08:00] Ranitidine HCl [Zantac] 150 mg PO BID 03/03/16 [History Confirmed 01/14/18 Last Taken 01/12/18 21:00] metFORMIN [Glucophage] 500 mg PO BIDCC 03/03/16 [History Confirmed 01/14/18 Last Taken 01/12/18 17:00] Amoxicillin/Potassium Clav [Augmentin] 875 mg PO BID 01/13/18 [History Confirmed 01/14/18 Last Taken 01/12/18 21:00] Home Medications Calcium Carbonate [Calcium] 1 tab PO TID 03/03/16 [History Confirmed 01/14/18 Last Taken 01/12/18 21:00] Cinnamon Bark [Cinnamon] 1,000 mg PO DAILY 03/03/16 [History Confirmed 01/14/18 Last Taken 01/12/18 08:00] Diltiazem [Cardizem Cd] 180 mg PO QAM 03/03/16 [History Confirmed 01/14/18 Last Taken 01/12/18 08:00] Ergocalciferol (Vitamin D2) [Vitamin D2] 50,000 unit PO WEEKLY 03/03/16 [ History Confirmed 01/14/18 Last Taken 01/09/18 08:00] Gabapentin [Gralise] 400 mg PO HS 03/03/16 [History Confirmed 01/14/18 Last Taken 01/12/18 21:00] Herbal Complex No.174 [Echinacea-Goldenseal] 900 mg PO HS 03/03/16 [History Confirmed 01/14/18 Last Taken 01/12/18 21:00] Insulin Aspart [Novolog] 30 units SC BIDAC PRN 03/03/16 [History Confirmed 01/14 Last Taken Unknown] Insulin Detemir [Levemir] 55 unit SQ HS 03/03/16 [History Confirmed 01/14/18 Last Taken 01/12/18 21:00] Losartan [Cozaar] 50 mg PO DAILY 03/03/16 [History Confirmed 01/14/18 Last Taken 01/12/18 08:00] Multivit-Min/FA/Lycopen/Lutein [Centrum Silver Tablet] 1 tab PO DAILY 03/03/16 [ History Confirmed 01/14/18 Last Taken 01/12/18 08:00] Ranitidine HCl [Zantac] 150 mg PO BID 03/03/16 [History Confirmed 01/14/18 Last Taken 01/12/18 21:00] metFORMIN [Glucophage] 500 mg PO BIDCC 03/03/16 [History Confirmed 01/14/18 Last Taken 01/12/18 17:00] Medical - DS: Hosp Hospital course: Ms. Doe is a 67 year old F with history of diabetes hypertension presents to the emergency room today for evaluation of lower GI bleed. The patient has been having cough that has been going on for the last 1 week, cough is associated with some shortness of breath. She was seen by a primary care provider or an urgent care center but she was prescribed Augmentin and albuterol inhaler. The patient notes that her symptoms improved after taking Augmentin. She still has some tablets left. This morning around 9:00 the patient noticed an urge to go to the bathroom, when she wiped herself she noticed that there was blood in the tissues and some clots. The patient has gone to the bathroom every hour since with multiple blood clots. She has had to use pads and notes that approximately 10-12 pads have been needed since this morning. This afternoon the patient had some sharp abdominal pain in the left lower quadrant that radiated to the umbilicus which resolved spontaneously. The patient also was dizzy this evening. The patient eventually decided to come to the emergency room for further evaluation. On presentation to the emergency room, patient was afebrile temperature 98, heart rate 78, blood pressure 165/68. Respirations 16-20, 98% oxygen saturation on room air. Labs showed mild leukocytosis 11.6, no left shift. Hemoglobin 11.6 MCV 76.5 platelets 254. INR 1.0, chemistry shows sodium of 138 potassium 4.5 bicarbonate 23 BUN 13 creatinine 0.8 glucose 90. Given patient's recurrent GI bleed patient is being admitted to the hospital for further management. We do not have a GI specialist available telephone operator but our surgeon Dr. Montague has agreed for consult and colonoscopy as needed. 01/14 Pt seen examined, the patient does not have any new complaints or concerns till has blood with clots passing via rectum hb is stable Awaiting surgery eval repeat hb/hct this pm, 01/15 colon Prep last night with poor sleep. Occasional cough from recent cold. No other complaints. Had colonoscopy this morning with diverticulosis and old blood in few of the diverticula. 01/16 No further bleeding. Hemoglobin stable. Patient feeling well stable for discharge. Patient to stop aspirin until seen by primary care doctor. Discharge diagnosis: GI bleed from diverticulosis, acute blood loss anemia Secondary discharge diagnosis: Diabetes with neuropathy, hypertension - Time Spent with Patient Total time spent providing and/or coordinating discharge services: Greater than 30 minutes Medical - DS: Exam - Constitutional Vitals: Vital Signs Temp Pulse Resp BP BP Pulse Ox 01/15/18 09:47 151/75 01/15/18 09:17 155/69 01/15/18 09:02 149/72 01/15/18 08:46 147/74 01/15/18 08:35 147/66 01/15/18 08:33 147/66 01/15/18 08:29 143/66 01/15/18 08:28 96.9 F L 16 143/66 01/15/18 07:58 99 01/15/18 06:36 152/56 01/15/18 04:36 98.1 F 86 20 148/65 94 01/15/18 00:45 141/76 01/15/18 00:31 166/79 01/15/18 00:02 98.1 F 20 173/83 95 01/14/18 22:25 98.9 F 20 179/83 94 01/14/18 16:43 97.7 F 18 154/75 94 01/14/18 16:36 154/75 01/14/18 16:35 98.9 F 16 99 01/14/18 12:27 98.1 F 01/14/18 11:30 97.3 F 16 136/73 136/73 93 Intake and Output 01/14/18 01/15/18 01/15/18 21:59 05:59 13:59 Intake Total 240 / 240 1400 / 1400 Output Total 700 / 700 1200 / 1200 400 / 400 Balance -460 / -460 200 / 200 -400 / -400 Intake: IV 1000 / 1000 Oral 240 / 240 400 / 400 Output: Urine Catheter Amount 150 / 150 Void Amount 75 / 75 400 / 400 Urine/Stool Mix 1100 / 1100 Stool 475 / 475 100 / 100 Other: Urine Appearance Clear Uretheral (Perdomo) Clear Urine Color Bright Yellow Uretheral (Perdomo) Pale Stool Size Large Stool Color Blood Tinged Blood Tinged Stool Consistency Liquid Liquid # Voids 1 # Bowel Movements 1 1 0 Weight 83.098 kg Medical - DS: Data Labs on day of discharge: Labs from last 24 hours 01/15/18 01/15/18 01/14/18 05:04 05:04 15:00 WBC 8.1 RBC 3.87 L Hgb 10.2 L 11.1 L Hct 30.4 L 32.0 L MCV 78.6 L MCH 26.4 MCHC 33.6 RDW 14.8 H Plt Count 236 MPV 7.7 Gran % 62.0 Lymph % (Auto) 27.9 Storey % (Auto) 6.8 Eos % (Auto) 2.6 Baso % (Auto) 0.7 Gran # 5.0 Lymph # (Auto) 2.3 Storey # (Auto) 0.6 Eos # (Auto) 0.2 Baso # (Auto) 0.1 Sodium 141 Potassium 3.9 Chloride 105 Carbon Dioxide 26 Anion Gap 10.0 BUN 8 Creatinine 0.6 GFR Calculation 93 Glucose 115 H Uric Acid 6.6 Calcium 8.6 Phosphorus 3.1 Magnesium 2.2 Total Bilirubin 0.3 Direct Bilirubin < 0.2 GGT 18 AST 22 ALT 17 Alkaline Phosphatase 75 Lactate Dehydrogenase 183 Total Protein 6.1 Albumin 3.6 Globulin 2.5 Albumin/Globulin Ratio 1.4 Triglycerides 215 H Medical - DS: A/P - Patient/Caregiver Discharge Instructions Activity: increase activity as tolerated Diet: Consistent Carbohydrate - Follow up Plan Follow up with: Maryuri Ko ARNP [Primary Care Provider] - Disposition: Home, Self-Care Prognosis: Good Rehab Potential: Good Medical - DS: Qual - VTE Deep Vein Thrombosis/Pulmonary Embolism Present on Admission: No
[2018-01-15] MEDS ORDERED: INSULIN LISPRO 1 UNIT/0.01 ML UNIT SQ SCH (12:00)
[2018-01-15] MEDS ORDERED: 0.9 % SODIUM CHLORIDE 10 ML SYRINGE IV SCH (14:00)
[2018-01-15] MEDS: CALCIUM (OYSTER SHELL) 500 MG TABLET PO SCH ×2 (17:00→23:32)
[2018-01-15] MEDS: metFORMIN 500 MG TABLET PO SCH (17:00)
[2018-01-15] MEDS ORDERED: metFORMIN 500 MG TABLET PO SCH (17:30)
[2018-01-15] MEDS: FAMOTIDINE 20 MG TABLET PO SCH (20:08)
[2018-01-15] MEDS ORDERED: FAMOTIDINE 20 MG TABLET PO SCH (21:00)
[2018-01-15] MEDS ORDERED: GABAPENTIN 400 MG CAPSULE PO SCH ×2 (21:00)
[2018-01-15] MEDS ORDERED: NON FORMULARY MEDICATION 1 DOSE MISCELL (Ranitidine Hcl [Zantac] 150 MG) PO SCH (21:00)
[2018-01-15] MEDS ORDERED: INSULIN GLARGINE, HUMAN 1 UNIT/0.01 ML SQ SCH ×2 (21:00)
[2018-01-16] MEDS: 0.9 % SODIUM CHLORIDE 10 ML SYRINGE IV SCH (05:30)
[2018-01-16] MEDS: INSULIN LISPRO 1 UNIT/0.01 ML UNIT SQ SCH (05:30)
[2018-01-16] MEDS: metFORMIN 500 MG TABLET PO SCH (08:06)
[2018-01-16] MEDS ORDERED: LOSARTAN 50 MG TABLET PO SCH ×2 (09:00)
[2018-01-16] MEDS ORDERED: VIT A,C & E/LUTEIN/MINERALS TABLET PO SCH ×2 (09:00)
[2018-01-16] MEDS ORDERED: DILTIAZEM 180 MG CAP.XL.24H PO SCH ×2 (09:00)
[2018-01-16] MEDS: CALCIUM (OYSTER SHELL) 500 MG TABLET PO SCH (09:03)
[2018-01-16] MEDS: FAMOTIDINE 20 MG TABLET PO SCH (09:04)
[2018-01-16] MEDS ORDERED: PNEUMOCOCCAL 23-VAL P-SAC VAC 0.5 ML VIAL IM ONE (10:15)
--- NOTE | 2018-02-01 15:02 | Operative Note ---
DATE OF OPERATION: 01/15/2018 PREOPERATIVE DIAGNOSIS: Rectal bleeding and blood loss anemia. POSTOPERATIVE DIAGNOSIS: Pancolonic diverticulosis. PROCEDURE: Colonoscopy to terminal ileum. SURGEON: Behzad Montague MD FINDINGS: Healthy colon except for diverticulosis. Old blood was noted in the diverticula in the sigmoid colon but no blood was noted in the terminal ileum down to the proximal sigmoid. There was no active bleeding. DESCRIPTION OF PROCEDURE: Under general anesthesia, the patient was turned to the left lateral decubitus position. A time-out procedure was carried out as per protocol. Digital examination was unremarkable except for old blood. Scope was introduced and maneuvered movement to the cecum. There was some old blood in the distal sigmoid but after getting past the distal sigmoid, no bleeding was noted over to the cecum. The ileocecal valve was cannulated and the terminal ileum was evaluated with no abnormal findings. There is no blood noted in the terminal ileum. The scope was then slowly withdrawn. There were pancolonic diverticula but no bleeding was noted in the cecum, ascending, transverse, or descending colon. In the mid sigmoid colon, there was some old blood noted and a few diverticula. There was no active bleeding. Rectum was normal. Retroflexed view of the rectum was unremarkable. The patient tolerated the procedure well. She was awakened and transferred to the day surgery recovery area. LCS:nazia Job ID: [id number] Doc ID: [id number] Behzad Montague M.D.
== END 2018-01-16 10:40 | disposition home or self-care (01) | DRG 378 ==
LOC: ED 20:58 → ICU 01-14 00:03 → MEDSUR 01-15 10:20
PROVIDERS: ADMIT Internal Medicine; ATTEND Internal Medicine
CPT/HCPCS: 45378; 811; 99231; 90732; J1815; J2001; J7030; J7120

== ENCOUNTER 2022-11-21 04:05 | Inpatient (IN) ==
[2022-11-21] MEDS ORDERED: IOPAMIDOL 100 ML BOTTLE IV ONE (04:06)
[2022-11-21] MEDS ORDERED: ONDANSETRON 4 MG/2 ML VIAL IV ONE (04:25)
[2022-11-21] MEDS ORDERED: morphine 4 MG/ML VIAL IV ONE ×2 (04:25→08:45)
[2022-11-21] MEDS ORDERED: LACTATED RINGERS 1,000 ML IV ONE (04:25)
[2022-11-21 05:09] LABS: POC Calcium, Ionized 1.15 (1.16-1.32); POC Creatinine 0.6 (0.6-1.2)
[2022-11-21 06:30] LABS: Basophils # (Auto) 0.07 K/mcL (0.00-0.30); Basophils % (Auto) 0.3 % (0.0-2.0); Eosinophils # (Auto) 0.14 K/mcL (0.00-0.70); Eosinophils % (Auto) 0.7 % (0.0-7.0); Hematocrit 41.3 % (34.1-44.9); Hemoglobin 13.6 g/dL (11.2-15.7); Lymphocytes # (Auto) 0.69 K/mcL (1.50-4.80); Lymphocytes % (Auto) 3.4 % (15.5-49.0); Mean Cell Volume 81.6 fL (80.0-100.0); Mean Corpuscular HGB Conc 32.9 g/dL (31.0-36.0); Mean Platelet Volume 10.2 fL (8.8-12.5); Monocytes # (Auto) 1.19 K/mcL (0.10-0.90); Monocytes % (Auto) 5.9 % (1.0-12.0); Platelet Count 245 K/mcL (140-440); RBC 5.06 M/mcL (3.59-5.38); Red Cell Distribution Width 13.5 % (11.5-14.5); WBC 20.1 K/mcL (4.5-11.0)
[2022-11-21] MEDS ORDERED: 0.9 % SODIUM CHLORIDE 1,000 ML IV ONE (06:40)
[2022-11-21 06:42] LABS: ALT/SGPT 16 U/L (<40); AST/SGOT 20 U/L (<32); Albumin 4.1 gm/dL (3.2-5.2); Alkaline Phosphatase 113 U/L (39-117); Bilirubin,Direct < 0.2 mg/dL (0-0.3); Bilirubin,Total 0.5 mg/dL (0.1-1.0); Globulin 2.9 gm/dL (2.2-3.7)
[2022-11-21] MEDS ORDERED: PIPERACILLIN SODIUM/TAZOBACTAM 3.375 GM in DEXTROSE 5% IN WATER 50 ML IV ONE (07:39)
[2022-11-21 07:51] LABS: Appearance,Urine CLEAR (Clear); Bilirubin,Urine Negative (Negative); Color,Urine YELLOW; Culture Indicated,Urine yes; Glucose,Urine (UA) Negative (Negative); Ketones,Urine Negative (Negative); Leukocyte Esterase,Urine 250 /uL (Negative); Mucus,Urine FEW /hpf; Nitrate,Urine Negative (Negative); Protein,Urine Negative (Negative); Specific Gravity,Urine 1.026 (1.000-1.035); Urine Blood Negative (Negative); Urine Hyaline Cast 3 /lph (0-2); Urine RBC 2 /hpf (0-3); Urine Squamous Epithelial Cell 1 /hpf (0-4); Urine Transitional Epi Cells < 1 /hpf (0-2); Urine WBC 10 /hpf (0-4); Urobilinogen,Urine Negative
[2022-11-21] MEDS ORDERED: ONDANSETRON 4 MG/2 ML VIAL IV PRN (11:26)
[2022-11-21] MEDS ORDERED: 0.9 % SODIUM CHLORIDE 1,000 ML IV SCH (11:26)
[2022-11-21] MEDS ORDERED: morphine 4 MG/ML VIAL IV PRN (11:26)
[2022-11-21] MEDS ORDERED: BISMUTH SUBSALICYLATE 15 ML ORAL.SUSP PO PRN (11:26)
[2022-11-21] MEDS ORDERED: POTASSIUM CHLORIDE 40 MEQ in DEXTROSE 5% IN WATER 500 ML IV PRN (11:26)
[2022-11-21] MEDS ORDERED: POTASSIUM CHLORIDE 20 MEQ TABLET PO PRN ×2 (11:26)
[2022-11-21] MEDS ORDERED: DEXTROSE 31 GM ORAL.SUSP PO PRN (11:26)
[2022-11-21] MEDS ORDERED: DEXTROSE 50% 50 ML VIAL IV PRN (11:26)
[2022-11-21] MEDS ORDERED: BISMUTH SUBSALICYLATE 15 ML ORAL.SUSP PO ONE (11:26)
[2022-11-21] MEDS ORDERED: MAGNESIUM SULFATE 2 GM/50 ML BAG IV PRN (11:26)
[2022-11-21] MEDS: ACETAMINOPHEN 325 MG TABLET PO PRN ×2 (12:01→18:52)
[2022-11-21] MEDS: INSULIN LISPRO 1 UNIT/0.01 ML UNIT SQ SCH ×3 (12:05→20:34)
[2022-11-21] MEDS: CIPROFLOXACIN 400 MG/200 ML BAG IV SCH ×2 (13:45→20:34)
[2022-11-21] MEDS: 0.9 % SODIUM CHLORIDE 10 ML SYRINGE IV SCH ×2 (14:52→20:34)
[2022-11-21] MEDS: metroNIDAZOLE 500 MG/100 ML BAG IV SCH ×2 (14:52→21:52)
[2022-11-22] MEDS: metroNIDAZOLE 500 MG/100 ML BAG IV SCH (05:22)
[2022-11-22] MEDS: 0.9 % SODIUM CHLORIDE 10 ML SYRINGE IV SCH (06:15)
[2022-11-22 07:24] LABS: Hematocrit 33.7 % (34.1-44.9); Hemoglobin 10.9 g/dL (11.2-15.7); Mean Cell Volume 81.6 fL (80.0-100.0); Mean Corpuscular HGB Conc 32.3 g/dL (31.0-36.0); Mean Platelet Volume 9.5 fL (8.8-12.5); Platelet Count 190 K/mcL (140-440); RBC 4.13 M/mcL (3.59-5.38); Red Cell Distribution Width 13.3 % (11.5-14.5)
[2022-11-22] MEDS ORDERED: PANTOPRAZOLE 40 MG VIAL IV SCH (07:30)
[2022-11-22 07:36] LABS: ALT/SGPT 77 U/L (<40); AST/SGOT 68 U/L (<32); Albumin 3.1 gm/dL (3.2-5.2); Albumin/Globulin Ratio 1.4 (1.0-2.3); Alkaline Phosphatase 98 U/L (39-117); Bilirubin,Direct < 0.2 mg/dL (0-0.3); Bilirubin,Total 0.3 mg/dL (0.1-1.0); Blood Urea Nitrogen 5 mg/dL (8-23); Calcium 7.8 mg/dL (8.6-10.4); Carbon Dioxide 22 mmol/L (22-30); Chloride 111 mmol/L (96-108); Globulin 2.2 gm/dL (2.2-3.7); Glomerular Filtration Rate 95; Glucose 101 mg/dL (70-105); Lactate Dehydrogenase 161 U/L (135-225); Phosphorous 2.9 mg/dL (2.5-4.5); Triglycerides 98 mg/dL (<150); Uric Acid 5.8 mg/dL (2.5-8.0)
[2022-11-22] MEDS: INSULIN LISPRO 1 UNIT/0.01 ML UNIT SQ SCH ×2 (07:40→11:35)
[2022-11-22] MEDS: ACETAMINOPHEN 325 MG TABLET PO PRN (07:44)
[2022-11-22] MEDS: CIPROFLOXACIN 400 MG/200 ML BAG IV SCH (08:02)
[2022-11-22 08:23] LABS: Band Neutrophils % 3 % (0-10); Basophils % (Manual) 1 % (0-2); Eosinophils % (Manual) 4 % (0-7); Lymphocytes % 18 % (15-49); Monocytes % (Manual) 1 % (1-12); Platelet Estimate NORMAL (Normal); RBC Morphology NORMAL (Normal); Reactive Lymphocytes 4 % (0-2); Segmented Neutrophils % 69 % (38-78)
[2022-11-22] MEDS ORDERED: LIDOCAINE PATCH TOPICAL PRN (08:33)
[2022-11-22] MEDS ORDERED: LOSARTAN 50 MG TABLET PO SCH (09:00)
[2022-11-22] MEDS ORDERED: DILTIAZEM 180 MG CAP.XL.24H PO SCH (09:00)
[2022-11-22] MEDS ORDERED: ENOXAPARIN 40 MG/0.4 ML SYRINGE SQ SCH (09:00)
[2022-11-22] MEDS ORDERED: NITROFURANTOIN SR 100 MG CAPSULE PO SCH (10:35)
[2022-11-22] MEDS ORDERED: GABAPENTIN 100 MG CAPSULE PO SCH (16:00)
[2022-11-22] MEDS ORDERED: GABAPENTIN 300 MG CAPSULE PO SCH (21:00)
== END 2022-11-22 12:32 | disposition home or self-care (01) | DRG 872 ==
LOC: ED 04:05 → MEDSUR 11:23
PROVIDERS: ADMIT Internal Medicine; ATTEND Internal Medicine